=== PATIENT | male | born 1995 | race Caucasian/White ===

== ENCOUNTER → 2017-03-08 | Outpatient (CLI) | payer OTHER | END | disposition home or self-care (01) | LOC: C.LAB 00:30 | DX: Z02.83 Encounter for blood-alcohol and blood-drug test (principal) ==

== ENCOUNTER 2017-04-26 09:04 | Emergency (ER) | payer OTHER ==
[~2017-04-26] VITALS: Ht 175.3 cm; Wt 79.9 kg
[2017-04-26 09:06] VITALS: BP 133/78; PULSE 82; TEMP 36.8; O2SAT 99; Ht 175.3 cm; Wt 79.9 kg
[2017-04-26] MEDS ORDERED: PROPARACAINE HCL 0.5% OP SOLN 15 ML BTL ONE (09:24)
[2017-04-26] MEDS ORDERED: METH4PAK PO (09:43)
[2017-04-26] MEDS ORDERED: AMOX875T PO (09:43)
--- NOTE | 2017-04-26 14:18 | EMERGENCY ROOM VISIT NOTE ---
History First contact with patient: : Chief Complaint: EYE ASSESSMENT Stated Complaint: RT EYE SWELLING History of Present Illness The patient is a 22 year old male who presents to the Emergency Room with complaints of right eye redness and swelling. The patient reports that he has had sinus congestion for the past 2 months. He also reports fullness of the ears. He denies any recent postnasal drip, sore throat or cough. He denies any blurred vision or discomfort in the eyes, and denies any recent fevers or chills. The patient does not wear contacts. He also has not noticed any significant drainage from the eye, and also denies pruritus. The patient reports that he did recently have a cold sore on his lip, reporting prior history of herpes labialis. Review of Systems 10 system review was performed and was negative except for pertinent positives and negatives as indicated in history of present illness Past Medical/Surgical History Medical Problems: (1) No significant medical problems Surgical Problems: (1) No significant past surgical history Family History No significant family history Social History Smoking Status: Never Smoker Alcohol Use: none Drug Use: none Marital Status: single Occupation Status: employed Current/Historical Medications Scheduled Amoxicillin & Pot Clavulanate (Augmentin 875-125 mg), 1 TAB PO BID Methylprednisolone (Medrol Dosepak), 0 PO DAILY Physical Exam Vital Signs Date Time Temp Pulse Resp B/P (MAP) Pulse Ox O2 Delivery O2 Flow Rate FiO2 04/26/17 09:06 36.8 82 20 133/78 99 Room Air Right Eye Acuity: 20/20 Left Eye Acuity: 20/15 Physical Exam CONSTITUTIONAL: Healthy and well nourished. Alert and oriented X 3 with positive affect. She does not appear in any acute distress. HEENT: Normocephalic, atraumatic. Pupils equal, round and reactive. Examination does not show any appreciable right periorbital edema or ecchymosis. He has minimal conjunctival injection without mucopurulent drainage from the eye. EOMs intact without discomfort. Slit lamp and fluorescein exam were also performed, and further detailed in the following Procedure section. OROPHARYNX: No tonsillar hypertrophy or exudates. LYMPHATICS: No cervical chain adenopathy. NECK: Full active range of motion without discomfort. RESPIRATORY: Clear to auscultation bilaterally with no wheezing, crackles, rhonchi or stridor. CARDIOVASCULAR: Regular rate and rhythm with no murmurs, rubs or gallops. MUSCULOSKELETAL: Full range of motion of all joints without discomfort. INTEGUMENTARY: No rash or other significant dermatologic conditions noted. NEUROLOGIC: Cranial nerves II-XII grossly intact. No focal neurologic deficits noted. Medical Decision & Procedures Procedure Slit lamp and fluorescein exam were performed after instilling 2 Alcaine drops into the right eye. Examination does not show any obvious foreign debris within the lower conjunctival sac. He does have mild conjunctival injection with trace mucous drainage. Negative hyphema, negative cell and flare. Fluorescein exam shows no corneal lesions or abrasions. ED Course Patient history and physical exam were performed. Nurse's notes were reviewed. Vital signs were reviewed and were normal. Slit lamp and fluorescein exam were rather unremarkable. Because the patient has had significant sinus congestion for the past 2 months, I did suggest treating him with Augmentin and a Medrol Dosepak. He was also encouraged to take OTC antihistamines and decongestants for additional relief. Ibuprofen and Tylenol as needed for discomfort. If the patient does not have improvement with the above treatment, I did suggest that he follow-up with ENT for further reevaluation and management. He was instructed to return to the emergency department for any significantly worsening symptoms, including periorbital edema, erythema, blurred vision, headache or fever. The patient was happy with plan of care, voiced understanding of all discharge instructions, and denied any discomfort at the time of discharge. Medical Decision Blood Pressure Screening Patient's blood pressure: Normal blood pressure Impression Primary Impression: Acute sinusitis Additional Impression: Herpes simplex labialis Departure Information Dispostion Home / Self-Care Condition GOOD Prescriptions Methylprednisolone (MEDROL DOSEPAK) 4 Mg Rui 0 PO DAILY, #1 PKT Prov: Louie Hunter PA 04/26/17 Amoxicillin & Pot Clavulanate (Augmentin 875-125 mg) 1 Tab Tab 1 TAB PO BID for 10 Days, #20 TAB Prov: Louie Hunter PA 04/26/17 Referrals Mj Brown M.D. Forms HOME CARE DOCUMENTATION FORM, IMPORTANT VISIT INFORMATION Patient Instructions My [facility] Additional Instructions Complete all Augmentin antibiotics and Medrol dosepak as prescribed. Suggest also taking a good decongestant (Sudafed or other OTC medication). You may also take a decongestant (Claritin or Zyrtec). Suggest follow-up with an ENT physician (Dr. Brown) if symptoms are not improving within the next 10-14 days. Problem Qualifiers Primary Impression: Acute sinusitis Sinusitis location: unspecified location Recurrence: non-recurrent Qualified Codes: J01.90 - Acute sinusitis, unspecified
== END 2017-04-26 10:00 | disposition home or self-care (01) ==
LOC: C.EDB 09:05
DX: J01.90 Acute sinusitis, unspecified (principal); B00.9 Herpesviral infection, unspecified